=== PATIENT | female | born 1975 ===

== ENCOUNTER → 2021-09-05 08:00 | Outpatient (CLI) | payer OTHER | END | disposition home or self-care (01) | LOC: ADM 07:45 → LAB 08:00 → EDSTATUS 09-07 07:45 → CIR.AMB 09-07 07:45 | PROVIDERS: ATTEND Obstetrics & Gynecology | DX: N93.8 Other specified abnormal uterine and vaginal bleeding (principal) ==

== ENCOUNTER 2021-09-05 15:38 | Inpatient (IN) | payer OTHER ==
[~2021-09-05] VITALS: Ht 160 cm; Wt 66.2 kg
== END 2021-09-08 11:14 | disposition home or self-care (01) | DRG 743 ==
LOC: ER → OB/GYN 18:15 → SURG-SUITE 09-06 14:03
PROVIDERS: ADMIT Obstetrics & Gynecology; ATTEND Obstetrics & Gynecology
PROC: 30233N1 Transfusion of Nonautologous Red Blood Cells into Peripheral Vein, Percutaneous Approach (ICD-10-PCS; 2021-09-06)
PROC: 0UB98ZZ Excision of Uterus, Via Natural or Artificial Opening Endoscopic (ICD-10-PCS; principal; 2021-09-07 10:30)
DX: D25.0 Submucous leiomyoma of uterus (principal); D50.0 Iron deficiency anemia secondary to blood loss (chronic); Z20.822 Contact with and (suspected) exposure to COVID-19